=== PATIENT | male | born 1960 | race Native Hawaiian/Other Pacific Islander ===

== ENCOUNTER 2020-07-13 12:08 | Emergency (ER) | payer OTHER ==
[~2020-07-13] VITALS: Ht 177.8 cm; Wt 74.8 kg
[2020-07-13 12:25] VITALS: TEMP 98.9
[2020-07-13 13:08] LABS: PLATELET COUNT 361 K/uL (142-355)
[2020-07-13 13:14] LABS: POTASSIUM 4.2 mmol/L (3.6-5.2)
[2020-07-13 14:30] VITALS: BP 99/47
== END 2020-07-13 14:35 | disposition home or self-care (01) ==
LOC: ED 12:08
PROVIDERS: Hospitalist
DX: N41.9 Inflammatory disease of prostate, unspecified (principal); N20.0 Calculus of kidney
CPT/HCPCS: 80048; 81000; 85027; 96360; 96375; 99284; J1170; J1885; J2405